=== PATIENT | female | born 1980 | race Caucasian/White ===

== ENCOUNTER 2018-11-12 09:45 | Emergency (ER) | payer MEDICAID ==
[2018-11-12] MEDS ORDERED: Sodium Chloride 0.9% 10 ML Syringe FLUSH PRN (11:26)
[2018-11-12] MEDS ORDERED: Sodium Chloride 0.9% 1,000 ML IV SCH (11:30)
[2018-11-12] MEDS ORDERED: hydrOXYzine HCl 25 MG Tab PO ONE (13:28)
[2018-11-12] MEDS ORDERED: Sucralfate 1 GM Tab PO ONE (13:29)
--- NOTE | 2018-11-12 13:43 | EDM.PDOC ---
ED HPI GENERAL MEDICAL PROBLEM - General Chief Complaint: Abdominal Pain Stated Complaint: SWELLING IN FACE AND PAIN ON RIGHT SIDE MID AREA Time Seen by Provider: 11/12/18 11:10 Source of Information: Reports: Patient Right Upper Abdomen Pain Score (Numeric/FACES): 7 - Related Data Allergies Allergy/AdvReac Type Severity Reaction Status Date / Time No Known Allergies Allergy Verified 11/12/18 10:14 Home Meds: Home Meds Omeprazole 20 mg PO DAILY 30 Days #30 tablet. 11/12/18 [Rx] hydrOXYzine HCl [hydrOXYzine] 25 mg PO Q6H PRN 5 Days #20 tab 11/12/18 [Rx] Past Medical History HEENT History: Reports: Impaired Vision Neurological History: Reports: Migraines Psychiatric History: Reports: Anxiety Endocrine/Metabolic History: Reports: Obesity/BMI 30+ - Infectious Disease History Infectious Disease History: Reports: Chicken Pox, Hepatitis C - Past Surgical History Head Surgeries/Procedures: Reports: None HEENT Surgical History: Reports: None Neurological Surgical History: Reports: Laminectomy Musculoskeletal Surgical History: Reports: Other (See Below) Other Musculoskeletal Surgeries/Procedures:: right hand, Dermatological Surgical History: Reports: None Social & Family History - Tobacco Use Smoking Status *Q: Current Every Day Smoker Years of Tobacco use: 13 Packs/Tins Daily: 0.5 Used Tobacco, but Quit: No Second Hand Smoke Exposure: No - Caffeine Use Caffeine Use: Reports: Coffee, Soda - Recreational Drug Use Recreational Drug Use: Yes Recreational Drug Type: Reports: Marijuana/Hashish Recreational Drug Use Frequency: Monthly ED ROS GENERAL - Review of Systems Review Of Systems: ROS reveals no pertinent complaints other than HPI. ED EXAM, GI/ABD - Physical Exam Exam: See Below Exam Limited By: No Limitations General Appearance: Alert, WD/WN, Anxious, Mild Distress Eyes: Bilateral: Normal Appearance, EOMI Ears: Normal External Exam, Normal Canal, Hearing Grossly Normal, Normal TMs Nose: Normal Inspection, Normal Mucosa, No Blood Throat/Mouth: Normal Inspection, Normal Lips, Normal Teeth, Normal Gums, Normal Oropharynx Head: Normocephalic Neck: Normal Inspection, Supple, Non-Tender, Full Range of Motion, Other ( fullness bilateral cheeks, neck and chin (per patient) ) Respiratory/Chest: No Respiratory Distress, Lungs Clear, Normal Breath Sounds, No Accessory Muscle Use Cardiovascular: Normal Peripheral Pulses, Regular Rate, Rhythm GI/Abdominal Exam: Normal Bowel Sounds, Soft, No Organomegaly (exam limite due to body habitus and abdominal girth), Tender (right upper abdomen ), Other ( scab and bite right mid flank without surrounding erythema). No: Distended, Guarding, Rigid, Rebound Back Exam: No: CVA Tenderness (R), CVA Tenderness (L) Extremities: Normal Inspection, Normal Range of Motion, Non-Tender Neurological: Alert, Oriented, CN II-XII Intact, Normal Gait, No Motor/Sensory Deficits Psychiatric: Anxious, Tearful Skin Exam: Warm, Dry, Intact, Normal Color, No Rash Course - Vital Signs Last Recorded V/S: Last Vital Signs Temp 36.8 C 11/12/18 10:15 Pulse 59 L 11/12/18 10:15 Resp 19 11/12/18 10:15 BP 136/72 11/12/18 10:15 Pulse Ox 99 11/12/18 10:15 - Orders/Labs/Meds Orders: Active Orders 24 hr Category Date Time Status Cardiac Monitoring [RC] .As Directed Care 11/12/18 11:26 Inactive Cardiac Monitoring [RC] .As Directed Care 11/12/18 11:28 Active Peripheral IV Care [RC] . DIRECTED Care 11/12/18 11:27 Active Abdomen Ltd [US] Stat Exams 11/12/18 11:55 Taken UA W/MICROSCOPIC [URIN] Stat Lab 11/12/18 11:26 Ordered Sodium Chloride 0.9% [Normal Saline] 1,000 ml Med 11/12/18 11:30 Active IV ASDIRECTED Sodium Chloride 0.9% [Saline Flush] Med 11/12/18 11:26 Active 10 ml FLUSH ASDIRECTED PRN Peripheral IV Insertion Adult [OM.PC] Urgent Oth 11/12/18 11:26 Ordered Medication Orders Sodium Chloride (Normal Saline) 1,000 mls @ 500 mls/hr IV ASDIRECTED MARYANN Last Admin: 11/12/18 12:19 Dose: 500 mls/hr Sodium Chloride (Saline Flush) 10 ml FLUSH ASDIRECTED PRN PRN Reason: Keep Vein Open Last Admin: 11/12/18 12:18 Dose: 10 ml Labs: Laboratory Tests 11/12/18 11/12/18 11/12/18 Range/Units 11:25 11:26 11:54 WBC (4.5-11.0) K/uL RBC (3.30-5.50) M/uL Hgb (12.0-15.0) g/dL Hct (36.0-48.0) % MCV (80-98) fL MCH (27-31) pg MCHC (32-36) % Plt Count (150-400) K/uL Neut % (Auto) (36-66) % Lymph % (Auto) (24-44) % [place] % (Auto) (2-6) % Eos % (Auto) (2-4) % Baso % (Auto) (0-1) % PT (9.5-12.0) sec INR (0.80-1.20) Sodium (140-148) mmol/L Potassium (3.6-5.2) mmol/L Chloride (100-108) mmol/L Carbon Dioxide (21-32) mmol/L Anion Gap (5.0-14.0) mmol/L BUN (7-18) mg/dL Creatinine (0.6-1.0) mg/dL Est Cr Clr Drug Dosing mL/min Estimated GFR (MDRD) (>60) Glucose (74-106) mg/dL Calcium (8.5-10.1) mg/dL Total Bilirubin (0.2-1.0) mg/dL Direct Bilirubin (0.0-0.2) mg/dL Indirect Bilirubin AST (15-37) U/L ALT (12-78) U/L Alkaline Phosphatase (46-116) U/L C-Reactive Protein (0.0-0.3) mg/dL Total Protein (6.4-8.2) g/dL Albumin (3.4-5.0) g/dL Globulin (2.3-3.5) g/dL Albumin/Globulin Ratio (1.2-2.2) Lipase 104 (73-393) U/L HCG, Qual Negative Monoscreen Negative (NEGATIVE) 11/12/18 11/12/18 11/12/18 Range/Units 11:54 11:54 11:54 WBC 10.7 (4.5-11.0) K/uL RBC 4.61 (3.30-5.50) M/uL Hgb 13.7 (12.0-15.0) g/dL Hct 42.9 (36.0-48.0) % MCV 93 (80-98) fL MCH 30 (27-31) pg MCHC 32 (32-36) % Plt Count 364 (150-400) K/uL Neut % (Auto) 66 (36-66) % Lymph % (Auto) 26 (24-44) % [place] % (Auto) 5 (2-6) % Eos % (Auto) 2 (2-4) % Baso % (Auto) 0 (0-1) % PT 10.6 (9.5-12.0) sec INR 0.98 (0.80-1.20) Sodium (140-148) mmol/L Potassium (3.6-5.2) mmol/L Chloride (100-108) mmol/L Carbon Dioxide (21-32) mmol/L Anion Gap (5.0-14.0) mmol/L BUN (7-18) mg/dL Creatinine (0.6-1.0) mg/dL Est Cr Clr Drug Dosing mL/min Estimated GFR (MDRD) (>60) Glucose (74-106) mg/dL Calcium (8.5-10.1) mg/dL Total Bilirubin (0.2-1.0) mg/dL Direct Bilirubin (0.0-0.2) mg/dL Indirect Bilirubin AST (15-37) U/L ALT (12-78) U/L Alkaline Phosphatase (46-116) U/L C-Reactive Protein 0.75 H (0.0-0.3) mg/dL Total Protein (6.4-8.2) g/dL Albumin (3.4-5.0) g/dL Globulin (2.3-3.5) g/dL Albumin/Globulin Ratio (1.2-2.2) Lipase (73-393) U/L HCG, Qual Monoscreen (NEGATIVE) 11/12/18 11/12/18 Range/Units 11:54 11:54 WBC (4.5-11.0) K/uL RBC (3.30-5.50) M/uL Hgb (12.0-15.0) g/dL Hct (36.0-48.0) % MCV (80-98) fL MCH (27-31) pg MCHC (32-36) % Plt Count (150-400) K/uL Neut % (Auto) (36-66) % Lymph % (Auto) (24-44) % [place] % (Auto) (2-6) % Eos % (Auto) (2-4) % Baso % (Auto) (0-1) % PT (9.5-12.0) sec INR (0.80-1.20) Sodium 141 (140-148) mmol/L Potassium 5.1 (3.6-5.2) mmol/L Chloride 106 (100-108) mmol/L Carbon Dioxide 27 (21-32) mmol/L Anion Gap 7.6 (5.0-14.0) mmol/L BUN 11 (7-18) mg/dL Creatinine 0.8 (0.6-1.0) mg/dL Est Cr Clr Drug Dosing 105.13 mL/min Estimated GFR (MDRD) > 60 (>60) Glucose 109 H (74-106) mg/dL Calcium 8.8 (8.5-10.1) mg/dL Total Bilirubin 0.2 (0.2-1.0) mg/dL Direct Bilirubin 0.06 (0.0-0.2) mg/dL Indirect Bilirubin TNP AST 13 L (15-37) U/L ALT 17 (12-78) U/L Alkaline Phosphatase 66 (46-116) U/L C-Reactive Protein (0.0-0.3) mg/dL Total Protein 7.5 (6.4-8.2) g/dL Albumin 3.6 (3.4-5.0) g/dL Globulin 3.9 H (2.3-3.5) g/dL Albumin/Globulin Ratio 0.9 L (1.2-2.2) Lipase (73-393) U/L HCG, Qual Monoscreen (NEGATIVE) Meds: Medications Generic Name Dose Route Start Last Admin Trade Name Freq PRN Reason Stop Dose Admin Sodium Chloride 1,000 mls @ 500 mls/hr 11/12/18 11:30 11/12/18 12:19 Normal Saline IV 500 mls/hr ASDIRECTED MARYANN Administration Sodium Chloride 10 ml 11/12/18 11:26 11/12/18 12:18 Saline Flush FLUSH 10 ml ASDIRECTED PRN Administration Keep Vein Open Discontinued Medications Generic Name Dose Route Start Last Admin Trade Name Maritza PRN Reason Stop Dose Admin Hydroxyzine HCl 25 mg 11/12/18 13:28 11/12/18 13:38 Atarax PO 11/12/18 13:29 25 mg ONETIME ONE Administration Sucralfate 1 gm 11/12/18 13:29 11/12/18 13:38 Carafate PO 11/12/18 13:30 1 gm ONETIME ONE Administration - Re-Assessments/Exams Free Text/Narrative Re-Assessment/Exam: Patient updated regarding blood tests results and wet radiology reading. Blood tests are normal. No signs of liver infection, abnormal liver function and mono test negative. RUQ US slightly thickened gallbladder wall with sludge noted. No RUQ fluid. Normal CB diameter. No signs of renal concerns. Stool and bowel overlying right upper abdomen. Patient is given po fluids, hydroxyzine and carafate for symptoms relief. Recommended follow-up with PCP this week or early next to discuss symptoms, ER visit and concerns. 11/12/18 13:38 Departure - Departure Time of Disposition: 14:00 Disposition: Home, Self-Care 01 Clinical Impression: Gastritis, Constipation - Discharge Information Prescriptions: hydrOXYzine HCl [hydrOXYzine] 25 mg PO Q6H PRN 5 Days #20 tab PRN Reason: Anxiety Omeprazole 20 mg PO DAILY 30 Days #30 tablet. Instructions: Gastritis, Adult, Constipation, Adult Referrals: PCP,None [Primary Care Provider] - Forms: ED Department Discharge Additional Instructions: 1. Increased fluid intake. 2. Decrease salt intake intake in diet. 3. Carafate 30 minutes before meals and bedtime x 10 days. 4. Omeprazole 20mg daily x 30 days. 5. Hydroxyzine 25mg every 6 hours for anxiety, nausea and pain. 6. Tylenol 500-1000mg every 6 hours for pain caution with liver concerns. 7. Ibuprofen 600-800mg every 6-8 hrs with food for pain and swelling. 8. Call PCP Tuesday am for recheck this week or early next for follow-up regarding ER visit and symptoms. - Problem List & Annotations (1) Constipation SNOMED Code(s): 37373767 Code(s): K59.00 - CONSTIPATION, UNSPECIFIED Status: Acute Current Visit: Yes (2) Gastritis SNOMED Code(s): 1180156 Code(s): K29.70 - GASTRITIS, UNSPECIFIED, WITHOUT BLEEDING Status: Acute Current Visit: Yes - My Orders Last 24 Hours: My Active Orders 11/12/18 11:26 Cardiac Monitoring [RC] .As Directed UA W/MICROSCOPIC [URIN] Stat Sodium Chloride 0.9% [Saline Flush] 10 ml FLUSH ASDIRECTED PRN Peripheral IV Insertion Adult [OM.PC] Urgent 11/12/18 11:27 Peripheral IV Care [RC] . DIRECTED 11/12/18 11:28 Cardiac Monitoring [RC] .As Directed 11/12/18 11:30 Sodium Chloride 0.9% [Normal Saline] 1,000 ml IV ASDIRECTED 11/12/18 11:55 Abdomen Ltd [US] Stat - Assessment/Plan Last 24 Hours: My Active Orders 11/12/18 11:26 Cardiac Monitoring [RC] .As Directed UA W/MICROSCOPIC [URIN] Stat Sodium Chloride 0.9% [Saline Flush] 10 ml FLUSH ASDIRECTED PRN Peripheral IV Insertion Adult [OM.PC] Urgent 11/12/18 11:27 Peripheral IV Care [RC] . DIRECTED 11/12/18 11:28 Cardiac Monitoring [RC] .As Directed 11/12/18 11:30 Sodium Chloride 0.9% [Normal Saline] 1,000 ml IV ASDIRECTED 11/12/18 11:55 Abdomen Ltd [US] Stat
--- NOTE | 2018-11-12 14:28 | CRLUS ---
HISTORY: Right upper quadrant pain. TECHNIQUE: Ultrasound of the right upper quadrant. COMPARISON: None. FINDINGS: Diffusely increased echogenicity of the liver. No liver lesions. No intrahepatic bile duct dilation. Main portal vein is patent with flow directed toward the liver. No cholelithiasis, gallbladder wall thickening, or pericholecystic fluid. Common duct measures 6 mm in caliber, within normal limits. Visualized portion the pancreas is unremarkable. Right kidney measures 12.6 cm long axis. Normal renal parenchymal thickness and echogenicity. No renal mass. No hydronephrosis. Proximal aorta measures 1.8 cm AP dimension. Mid aorta measures 1.9 cm AP dimension. Distal aorta measures 1.7 cm AP dimension. IMPRESSION: Fatty infiltration of the liver. Dictated by Reinaldo Camilo MD @ 11/12/2018 2:26:28 PM Dictated by: Reinaldo Camilo MD @ 11/12/2018 14:26:33 (Electronically Signed)
== END 2018-11-12 14:06 | disposition home or self-care (01) ==
LOC: JP.ED 09:45
DX: K29.70 Gastritis, unspecified, without bleeding (principal); K59.00 Constipation, unspecified; E66.9 Obesity, unspecified; F17.210 Nicotine dependence, cigarettes, uncomplicated; Z68.36 Body mass index [BMI] 36.0-36.9, adult
CPT/HCPCS: 36415; 76705; 80048; 80076; 83690; 84703; 85025; 85610; 86140; 86308; 96360; 96361; 99284; A9270; J7030